=== PATIENT | male | born 1965 | race American Indian/Alaskan Native ===

== ENCOUNTER 2016-08-07 12:50 | Inpatient (IN) | payer BC ==
[2016-08-07] MEDS ORDERED: Vancomycin 1 gm/NS 200 ml 1 GM/200 ML BAG IVPB ONE (18:00)
[2016-08-07 23:10] LABS: MEAN CELL VOLUME 80.3 fL (80.0-94.0); MEAN CORPUSCULAR HEMOGLOBIN 27.5 pg (27.0-31.0); MEAN CORPUSCULAR HGB CONC 34.2 g/dL (33.0-37.0); MEAN PLATELET VOLUME 9.4 fL (7.2-11.7); RBC 5.47 Mil/uL (4.40-5.90); RED CELL DISTRIBUTION WIDTH 14.3 % (11.5-14.5); WHITE BLOOD COUNT 22.7 K/uL (4.8-10.8)
--- NOTE | 2016-08-07 23:12 | CT ---
PROCEDURE: CT NECK WITH CONTRAST HISTORY: COMPARISON: None TECHNIQUE: CT of the neck with intravenous contrast. Coronal and sagittal reformats generated. Intravenous contrast dose: 100 mL Visipaque 320 Radiation dose: DLP 511.88 mGy-cm This CT exam was performed using one or more of the following dose reduction techniques: Automated exposure control, adjustment of the mA and/or kV according to patient size, and/or use of iterative reconstruction technique. FINDINGS: NASOPHARYNX: Within normal limits. SUPRAHYOID NECK: The oropharynx, oral cavity, parapharyngeal space and retropharyngeal space are normal in appearance. INFRAHYOID NECK: The larynx, hypopharynx, and supraglottic space are normal. Vocal cords intact. MASS: None. GLANDS: Parotid and submandibular glands unremarkable. Normal size thyroid gland, without nodule. LYMPH NODES: There is a solitary enlarged left supraclavicular lymph node measuring 1.8 x 1.3 cm. CERVICAL SPINE: No fracture or focal lesion. VASCULAR STRUCTURES: Unremarkable. OTHER FINDINGS: There is diffuse stranding of subcutaneous fat in the posterior neck with abnormal subcutaneous soft tissue in the midline and to the left. There is minimal fluid subjacent to the left paraspinous muscles, irregularity and mild asymmetric enlargement of the adjacent left sternocleidomastoid. There is also diffuse skin thickening. No drainable fluid collection or abscess. IMPRESSION: 1. Findings are consistent with cellulitis and phlegmonous tissue in the subcutaneous fat in the midline and left posterior neck. No evidence of drainable fluid collection or abscess. 2. Solitary enlarged left supraclavicular lymph node is likely reactive, infectious or inflammatory in etiology.
--- NOTE | 2016-08-07 23:12 | CT ---
PROCEDURE: CT HEAD WITH CONTRAST HISTORY: COMPARISON: None available. TECHNIQUE: Axial computed tomography images were obtained through the head/brain with intravenous contrast. Contrast dose: 100 mL Visipaque 320 Radiation dose: Total exam DLP = 881.39 mGy-cm. This CT exam was performed using one or more of the following dose reduction techniques: Automated exposure control, adjustment of the mA and/or kV according to patient size, and/or use of iterative reconstruction technique. FINDINGS: HEMORRHAGE: No intracranial hemorrhage. BRAIN: Verduzco-white matter differentiation is preserved. There is no mass, mass effect or abnormal extra-axial fluid collection. VENTRICLES: The ventricles are normal in size, shape and configuration. CALVARIUM: The skull base and calvarium are normal. PARANASAL SINUSES: Predominantly clear. MASTOID AIR CELLS: Predominantly clear. OTHER FINDINGS: There is stranding of subcutaneous fat and abnormal soft tissue in the midline and left deep subcutaneous tissues. IMPRESSION: No acute intracranial abnormality. Cellulitis in the midline and left paramedian posterior neck.
[2016-08-07 23:20] LABS: ALT/SGPT 22 U/L (21-72); AST/SGOT 48 U/L (17-59); BLOOD UREA NITROGEN 17 mg/dL (9-20); CALCIUM 8.6 mg/dl (8.6-10.4); GFR AFRICAN-AMERICAN > 60; GFR NON-AFRICAN AMERICAN > 60
--- NOTE | 2016-08-08 01:24 | CP.PCM.CON ---
History of Present Illness - History of Present Illness History of Present Illness: General Sx Consult note for Violet Garcia, PGY-1 Pt S & E at bedside this evening. 51M w/PMH sig for HTN and sickle cell trait evaluated for posterior neck/ occipital area abscess evaluation s/p I & D in ED today. Pt reports that approximately 1 mo ago, he noted few small bumps on the back of his head. Went to PMD, given Abx, had emesis and dizziness after taking ABx- d/c'd use. Approximately 1 wk ago, pt noted a dime sized bump on back of his head, that enlarged to golf ball size overtime with resulting dull pain. Tried herbal remedy without resolution, used Tylenol PRN pain with relief. Admits to fevers, chills, diaphoresis, white drainage from lesion at back of head. Denies N/V, SOB, CP, abdominal pain, pain in any other part of his body besides back of his head, vision changes, other complaints. PMH: Sickle cell trait, HTN PSH: R knee arthroscopy All: Denies SH:Admits to 1-2 glasses of wine Q6mos, denies tobacco or illicit drug use PMD: Dr. Esposito on [facility] in Review of Systems - Review of Systems All systems: reviewed and no additional remarkable complaints except - Constitutional Constitutional: Chills, Fever - EENT Eyes: absent: Change in Vision Nose/Mouth/Throat: Neck Pain - Cardiovascular Cardiovascular: absent: Chest Pain - Respiratory Respiratory: absent: Cough - Gastrointestinal Gastrointestinal: absent: Abdominal Pain, Nausea, Vomiting - Musculoskeletal Musculoskeletal: Neck Pain. absent: Back Pain - Integumentary Integumentary: Lesions (posterior neck/occipital area) Past Patient History - Past Medical History & Family History Past Medical History?: No - Past Social History Smoking Status: Never Smoked - MUSCULOSKELETAL/RHEUMATOLOGICAL Hx Falls: No - SURGICAL HISTORY Hx Surgeries: Yes Other/Comment: knee surgery 2004 - ANESTHESIA Hx Anesthesia: Yes Hx Anesthesia Reactions: No Meds Allergies/Adverse Reactions: Allergies Allergy/AdvReac Type Severity Reaction Status Date / Time No Known Allergies Allergy Verified 08/07/16 23:06 - Medications Medications: Current Medications Acetaminophen (Tylenol 325mg Tab) 650 mg PO Q4 PRN PRN Reason: Fever >101.0F Enoxaparin Sodium (Lovenox) 40 mg SC DAILY [facility] Vancomycin HCl 1 gm/ Sodium (Chloride) 250 mls @ 166.7 mls/hr IVPB Q12H [facility] Pneumococcal Polyvalent Vaccine (Pneumovax 23 Vaccine) 0.5 ml IM .ONCE ONE Stop: 08/10/16 10:01 Physical Exam - Constitutional Appears: Non-toxic, No Acute Distress - Head Exam Additional comments: Large, indurated area over occipital area of cranium, approximately 12 x 6 cm with longitudinal incision visible over central area, covered by large dressing , small amount of purulent strike through on dressing, TTP over lesion and surrounding area of B/L lateral neck, no erythema visible - Eye Exam Eye Exam: EOMI, Normal appearance - ENT Exam ENT Exam: Mucous Membranes Moist, Normal Exam - Neck Exam Neck exam: Positive for: Full Rom, Tenderness (over occipital area/posterior neck). Negative for: Normal Inspection - Respiratory Exam Respiratory Exam: Clear to Auscultation Bilateral, NORMAL BREATHING PATTERN. absent: Rales, Rhonchi, Wheezes, Respiratory Distress - Cardiovascular Exam Cardiovascular Exam: REGULAR RHYTHM, +S1, +S2 - GI/Abdominal Exam GI & Abdominal Exam: Normal Bowel Sounds, Soft. absent: Tenderness - Extremities Exam Extremities exam: Positive for: full ROM, normal inspection. Negative for: pedal edema - Neurological Exam Neurological exam: Alert, CN II-XII Intact, Oriented x3 - Psychiatric Exam Psychiatric exam: Normal Affect, Normal Mood - Skin Skin Exam: Dry, Normal Color, Warm Additional comments: see neck for skin findings Results - Vital Signs Recent Vital Signs: Last Vital Signs Temp 98.2 F 08/07/16 23:49 Pulse 82 08/07/16 23:49 Resp 20 08/07/16 23:49 BP 145/84 08/07/16 23:49 Pulse Ox 95 08/07/16 23:49 - Labs Result Diagrams: 08/07/16 23:03 08/07/16 23:03 Labs: Laboratory Results - last 24 hr 08/07/16 08/07/16 23:03 23:03 WBC 22.7 H RBC 5.47 Hgb 15.0 Hct 43.9 MCV 80.3 MCH 27.5 MCHC 34.2 RDW 14.3 Plt Count 217 MPV 9.4 Sodium 140 Potassium 5.0 Chloride 101 Carbon Dioxide 29 Anion Gap 15 BUN 17 Creatinine 1.1 Est GFR ( Amer) > 60 Est GFR (Non-Af Amer) > 60 Random Glucose 98 Calcium 8.6 Total Bilirubin 1.4 H AST 48 ALT 22 Alkaline Phosphatase 58 Total Protein 8.2 Albumin 4.0 Globulin 4.2 H Albumin/Globulin Ratio 1.0 Assessment & Plan - Assessment and Plan (Free Text) Plan: Posterior neck/occipital area abscess s/p I & D in ED earlier today warm compresses to back of head Cont IV Abx Pain mgmt as per primary team Will monitor DW attending Tammi PGY-1 - Date & Time Date: 08/07/16 Time: 20:30
--- NOTE | 2016-08-08 06:28 | CP.PCM.PN ---
Subjective - Date & Time of Evaluation Date of Evaluation: 08/08/16 Time of Evaluation: 06:10 - Subjective Subjective: General Sx progress note for Dr. Jaylan Cadena, PGY-1 Pt S & E at bedside. Pt reports tenderness upon pressure over posterior neck, unable to lay on back due to pain. Denies N/V/F/C, SOB, CP, ab pain overnight. Objective - Vital Signs/Intake and Output Vital Signs (last 24 hours): Temp Pulse Resp BP Pulse Ox 99.1 F 82 20 145/84 95 08/08/16 05:50 08/07/16 23:49 08/07/16 23:49 08/07/16 23:49 08/07/16 23:49 Intake and Output: 08/07/16 08/08/16 18:59 06:59 Intake Total 650 Output Total 200 Balance 450 - Medications Medications: Current Medications Acetaminophen (Tylenol 325mg Tab) 650 mg PO Q4 PRN PRN Reason: Fever >101.0F Last Admin: 08/08/16 06:10 Dose: 650 mg Enoxaparin Sodium (Lovenox) 40 mg SC DAILY [facility] Famotidine (Pepcid) 20 mg PO DAILY [facility] Vancomycin HCl 1 gm/ Sodium (Chloride) 250 mls @ 166.7 mls/hr IVPB Q12H [facility] Last Admin: 08/08/16 05:18 Dose: 166.7 mls/hr Pneumococcal Polyvalent Vaccine (Pneumovax 23 Vaccine) 0.5 ml IM .ONCE ONE Stop: 08/10/16 10:01 - Labs Labs: 08/07/16 23:03 08/07/16 23:03 - Constitutional Appears: Non-toxic, No Acute Distress - Head Exam Additional comments: Large, indurated area over occipital area of cranium, approximately 12 x 6 cm with longitudinal incision visible over central area, covered by large dressing , moderate amount of purulent strike through on dressing, TTP over lesion and surrounding area of B/L lateral neck, no erythema visible, able to express small amount of purulent drainage upon palpation - Eye Exam Eye Exam: EOMI, Normal appearance - ENT Exam ENT Exam: Mucous Membranes Moist, Normal Exam - Neck Exam Neck Exam: Tenderness - Respiratory Exam Respiratory Exam: Clear to Ausculation Bilateral, NORMAL BREATHING PATTERN - Cardiovascular Exam Cardiovascular Exam: REGULAR RHYTHM, +S1, +S2 - GI/Abdominal Exam GI & Abdominal Exam: Soft, Normal Bowel Sounds - Extremities Exam Extremities Exam: absent: Pedal Edema, Tenderness - Neurological Exam Neurological Exam: Alert, Awake, Oriented x3 - Psychiatric Exam Psychiatric exam: Normal Affect, Normal Mood - Skin Skin Exam: Dry, Warm. absent: Intact - Additional Findings Additional findings: See head for neck skin findings Assessment and Plan - Assessment and Plan (Free Text) Assessment: Posterior neck abscess s/p I & D Cont warm compresses to area Cont IV ABx Motrin Tylenol Monitor Will DW attending Cadena PGY-1
[2016-08-08] MEDS: Enoxaparin 40 mg Syringe SC SCH (09:26)
--- NOTE | 2016-08-08 23:34 | CP.PCM.HP ---
History of Present Illness - History of Present Illness History of Present Illness: CC: abscess on neck HPI: This is a 51 yr old AA male who has history of HTN, sickle cell disaese, obesity not diabetic, no cardiac histiry, independent in activities of daily living, for last 1 month he had swelling at back of his neck, gradually getting worse, painful,associated with fever, chills and rigors, his PMd gave him antibiotics by which he didinot improved and he came to ER, he is admitted . there is a lot of neck pain, significant swelling and purulent discharge from the abscess. He denies any cough, chest pain, shortness of breath, Present on Admission - Present on Admission Any Indicators Present on Admission: Yes History of DVT/PE: No History of Uncontrolled Diabetes: No Urinary Catheter: No Decubitus Ulcer Present: No Review of Systems - Review of Systems Systems not reviewed;Unavailable: Acuity of Condition - Constitutional Constitutional: Chills, Fever, Malaise - EENT Eyes: absent: As Per HPI, Blind Spots, Blurred Vision, Change in Vision, Decreased Night Vision, Diplopia, Discharge, Dry Eye, Exophthalmos, Floaters, Irritation, Itchy Eyes, Loss of Peripheral Vision, Pain, Photophobia, Requires Corrective Lenses, Sees Flashes, Spots in Vision, Tunnel Vision, Other Visual Disturbances, Loss of Vision, Other Nose/Mouth/Throat: absent: As Per HPI, Epistaxis, Nasal Congestion, Nasal Discharge, Nasal Obstruction, Nasal Trauma, Nose Pain, Post Nasal Drip, Sinus Pain, Sinus Pressure, Bleeding Gums, Change in Voice, Dental Pain, Dry Mouth, Dysphagia, Halitosis, Hoarsness, Lip Swelling, Mouth Lesions, Mouth Pain, Odynophagia, Sore Throat, Throat Swelling, Tongue Swelling, Facial Pain, Neck Pain, Neck Mass, Other - Cardiovascular Cardiovascular: absent: As Per HPI, Acrocyanosis, Chest Pain, Chest Pain at Rest , Chest Pain with Activity, Claudication, Diaphoresis, Dyspnea, Dyspnea on Exertion, Edema, Irregular Heart Rhythm, Pain Radiating to Arm/Neck/Jaw, Leg Edema, Leg Ulcers, Lightheadedness, Orthopnea, Palpitations, Paroxysmal Nocturnal Dyspnea, Pedal Edema, Radiating Pain, Rapid Heart Rate, Slow Heart Rate, Syncope, Other - Respiratory Respiratory: absent: As Per HPI, Cough, Dyspnea, Hemoptysis, Dyspnea on Exertion , Wheezing, Snoring, Stridor, Pain on Inspiration, Chest Congestion, Excessive Mucous Production, Change in Mucous Color, Pain with Coughing, Other - Integumentary Integumentary: Swelling Past Patient History - Past Medical History & Family History Past Medical History?: No - Past Social History Smoking Status: Never Smoked - MUSCULOSKELETAL/RHEUMATOLOGICAL Hx Falls: No - SURGICAL HISTORY Hx Surgeries: Yes Other/Comment: knee surgery 2005 - ANESTHESIA Hx Anesthesia: Yes Hx Anesthesia Reactions: No Meds Allergies/Adverse Reactions: Allergies Allergy/AdvReac Type Severity Reaction Status Date / Time No Known Allergies Allergy Verified 08/07/16 23:06 Physical Exam - Constitutional Appears: No Acute Distress - Head Exam Head Exam: ATRAUMATIC, NORMOCEPHALIC Additional comments: Large, indurated area over occipital area of cranium, approximately 12 x 6 cm with longitudinal incision visible over central area, covered by large dressing , small amount of purulent strike through on dressing, TTP over lesion and surrounding area of B/L lateral neck, no erythema visible - Eye Exam Eye Exam: EOMI, Normal appearance, PERRL Pupil Exam: NORMAL ACCOMODATION, PERRL - ENT Exam ENT Exam: Mucous Membranes Moist - Neck Exam Neck exam: Positive for: Tenderness Additional comments: Large, indurated area over occipital area of cranium, approximately 12 x 6 cm with longitudinal incision visible over central area, covered by large dressing , small amount of purulent strike through on dressing, TTP over lesion and surrounding area of B/L lateral neck, no erythema visible - Respiratory Exam Respiratory Exam: Clear to Auscultation Bilateral, NORMAL BREATHING PATTERN - Cardiovascular Exam Cardiovascular Exam: REGULAR RHYTHM - GI/Abdominal Exam GI & Abdominal Exam: Normal Bowel Sounds, Soft. absent: Tenderness Results - Vital Signs Recent Vital Signs: Last Vital Signs Temp 98 F 08/08/16 16:00 Pulse 76 08/08/16 16:00 Resp 20 08/08/16 16:00 BP 138/88 08/08/16 16:00 Pulse Ox 98 08/08/16 16:00 - Labs Result Diagrams: 08/10/16 09:07 08/10/16 09:07 Assessment & Plan (1) Abscess of neck Assessment and Plan: admit I and D antibitics Pain managment Status: Acute
--- NOTE | 2016-08-09 07:26 | CP.PCM.PN ---
Subjective - Date & Time of Evaluation Date of Evaluation: 08/09/16 Time of Evaluation: 06:40 - Subjective Subjective: Patient seen and examined this morning. Reports some tenderness along occipital region. Abscess is actively draining, some pus was expressed this AM. Patient denies fever/chills. Dressings were changed, c/d/i. Objective - Vital Signs/Intake and Output Vital Signs (last 24 hours): Temp Pulse Resp BP Pulse Ox 98.4 F 80 20 148/88 97 08/09/16 00:00 08/09/16 00:00 08/09/16 00:00 08/09/16 00:00 08/09/16 00:00 Intake and Output: 08/09/16 08/09/16 06:59 18:59 Intake Total 1140 Balance 1140 - Medications Medications: Current Medications Acetaminophen (Tylenol 325mg Tab) 650 mg PO Q4 PRN PRN Reason: Fever >101.0F Last Admin: 08/08/16 06:10 Dose: 650 mg Acetaminophen (Tylenol 325mg Tab) 650 mg PO Q6 PRN PRN Reason: Pain, moderate (4-7) Enoxaparin Sodium (Lovenox) 40 mg SC DAILY [facility] Last Admin: 08/08/16 09:26 Dose: Not Given Famotidine (Pepcid) 20 mg PO DAILY [facility] Last Admin: 08/08/16 09:25 Dose: 20 mg Vancomycin HCl 1 gm/ Sodium (Chloride) 250 mls @ 166.7 mls/hr IVPB Q12H [facility] Last Admin: 08/09/16 05:34 Dose: 166.7 mls/hr Ibuprofen (Motrin Tab) 600 mg PO TID PRN PRN Reason: Pain, Mild (1-3) Last Admin: 08/08/16 22:46 Dose: 600 mg Pneumococcal Polyvalent Vaccine (Pneumovax 23 Vaccine) 0.5 ml IM .ONCE ONE Stop: 08/10/16 10:01 - Constitutional Appears: Non-toxic - Head Exam Additional comments: posterior abscess along occipital region, actively draining - ENT Exam ENT Exam: Mucous Membranes Moist - Respiratory Exam Respiratory Exam: NORMAL BREATHING PATTERN - Cardiovascular Exam Cardiovascular Exam: +S1, +S2 - Neurological Exam Neurological Exam: Alert, Awake, Oriented x3 - Psychiatric Exam Psychiatric exam: Normal Mood Assessment and Plan - Assessment and Plan (Free Text) Assessment: 51M w/ posterior neck abscess s/p I & D Cont warm compresses to area Cont IV ABx C/w analgesics Dressing changes, maintain area clean/dry/intact Further recs per Dr. Miller
[2016-08-09] MEDS: Enoxaparin 40 mg Syringe SC SCH (09:56)
[2016-08-09 12:03] LABS: BASO # 0.1 K/uL (0.0-0.2); BASO % 0.6 % (0.0-2.0); EOS # 0.4 K/uL (0.0-0.7); EOS % 2.7 % (0.0-4.0); HEMOGLOBIN 14.1 g/dL (12.0-18.0); LYMPH # 3.3 K/uL (1.0-4.3); LYMPH % 20.5 % (20.0-40.0); MEAN CELL VOLUME 79.4 fL (80.0-94.0); MEAN CORPUSCULAR HEMOGLOBIN 27.2 pg (27.0-31.0); MEAN CORPUSCULAR HGB CONC 34.3 g/dL (33.0-37.0); MEAN PLATELET VOLUME 9.1 fL (7.2-11.7); MONO # 1.6 K/uL (0.0-0.8); MONO % 9.8 % (0.0-10.0); NEUT # 10.6 K/uL (1.8-7.0); NEUT % 66.4 % (50.0-75.0); RBC 5.18 Mil/uL (4.40-5.90); RED CELL DISTRIBUTION WIDTH 14.2 % (11.5-14.5)
[2016-08-09 12:14] LABS: GFR AFRICAN-AMERICAN > 60; GFR NON-AFRICAN AMERICAN > 60
[2016-08-09 12:15] LABS: BLOOD UREA NITROGEN 14 mg/dL (9-20); CALCIUM 8.6 mg/dl (8.6-10.4)
[2016-08-09] MEDS ORDERED: Potassium Chloride 20 mEq/15 ml LIQ UD PO STA (18:29)
--- NOTE | 2016-08-09 23:41 | CP.PCM.PN ---
Subjective - Date & Time of Evaluation Date of Evaluation: 08/09/16 Time of Evaluation: 09:00 - Subjective Subjective: C/O NECK PAIN, FEVER CHILLS, NO SOB, NO DM Objective - Vital Signs/Intake and Output Vital Signs (last 24 hours): Temp Pulse Resp BP Pulse Ox 98.2 F 77 20 147/90 96 08/09/16 16:00 08/09/16 16:00 08/09/16 16:00 08/09/16 16:00 08/09/16 16:00 Intake and Output: 08/09/16 08/10/16 18:59 06:59 Intake Total 600 Balance 600 - Medications Medications: Current Medications Acetaminophen (Tylenol 325mg Tab) 650 mg PO Q4 PRN PRN Reason: Fever >101.0F Last Admin: 08/08/16 06:10 Dose: 650 mg Acetaminophen (Tylenol 325mg Tab) 650 mg PO Q6 PRN PRN Reason: Pain, moderate (4-7) Enoxaparin Sodium (Lovenox) 40 mg SC DAILY [facility] Last Admin: 08/09/16 09:56 Dose: 40 mg Famotidine (Pepcid) 20 mg PO DAILY [facility] Last Admin: 08/09/16 09:56 Dose: 20 mg Vancomycin HCl 1 gm/ Sodium (Chloride) 250 mls @ 166.7 mls/hr IVPB Q12H [facility] Last Admin: 08/09/16 17:26 Dose: 166.7 mls/hr Ibuprofen (Motrin Tab) 600 mg PO TID PRN PRN Reason: Pain, Mild (1-3) Last Admin: 08/08/16 22:46 Dose: 600 mg Pneumococcal Polyvalent Vaccine (Pneumovax 23 Vaccine) 0.5 ml IM .ONCE ONE Stop: 08/10/16 10:01 - Labs Labs: 08/09/16 11:53 08/09/16 11:53 - Constitutional Appears: Non-toxic, No Acute Distress - Head Exam Head Exam: ATRAUMATIC, NORMAL INSPECTION, NORMOCEPHALIC - Eye Exam Eye Exam: EOMI, Normal appearance, PERRL Pupil Exam: NORMAL ACCOMODATION - ENT Exam ENT Exam: Mucous Membranes Moist, Normal Exam, TM's Normal Bilaterally - Neck Exam Neck Exam: Full ROM (ABCESS BACK OF NECK WITH DISCHARGE), Normal Inspection - Respiratory Exam Respiratory Exam: NORMAL BREATHING PATTERN - Cardiovascular Exam Cardiovascular Exam: REGULAR RHYTHM, +S1, +S2 - GI/Abdominal Exam GI & Abdominal Exam: Soft, Normal Bowel Sounds - Rectal Exam Rectal Exam: NORMAL INSPECTION - Extremities Exam Extremities Exam: Full ROM, Normal Capillary Refill, Normal Inspection - Back Exam Back Exam: NORMAL INSPECTION - Neurological Exam Neurological Exam: Alert, Awake, CN II-XII Intact, Normal Gait, Oriented x3 Assessment and Plan (1) Abscess of neck Assessment & Plan: CONTINUE VANCOMYCIN, SEEN BY SURGERY Status: Acute
--- NOTE | 2016-08-10 08:49 | CP.PCM.PN ---
Subjective - Date & Time of Evaluation Date of Evaluation: 08/10/16 Time of Evaluation: 08:45 - Subjective Subjective: Surgery: Dr. Miller Patient doing well. States posterior neck feels better. Reports good range of motion. Denies f/c/n/v. States he is still doing warm compresses and the abscess continues to drain. Objective - Vital Signs/Intake and Output Vital Signs (last 24 hours): Temp Pulse Resp BP Pulse Ox 98 F 72 20 134/85 96 08/10/16 00:25 08/10/16 00:25 08/10/16 00:25 08/10/16 00:25 08/10/16 00:25 Intake and Output: 08/10/16 08/10/16 06:59 18:59 Intake Total 600 Balance 600 - Medications Medications: Current Medications Acetaminophen (Tylenol 325mg Tab) 650 mg PO Q4 PRN PRN Reason: Fever >101.0F Last Admin: 08/08/16 06:10 Dose: 650 mg Acetaminophen (Tylenol 325mg Tab) 650 mg PO Q6 PRN PRN Reason: Pain, moderate (4-7) Enoxaparin Sodium (Lovenox) 40 mg SC DAILY [facility] Last Admin: 08/09/16 09:56 Dose: 40 mg Famotidine (Pepcid) 20 mg PO DAILY [facility] Last Admin: 08/09/16 09:56 Dose: 20 mg Vancomycin HCl 1 gm/ Sodium (Chloride) 250 mls @ 166.7 mls/hr IVPB Q12H [facility] Last Admin: 08/10/16 05:25 Dose: 166.7 mls/hr Ibuprofen (Motrin Tab) 600 mg PO TID PRN PRN Reason: Pain, Mild (1-3) Last Admin: 08/08/16 22:46 Dose: 600 mg Pneumococcal Polyvalent Vaccine (Pneumovax 23 Vaccine) 0.5 ml IM .ONCE ONE Stop: 08/10/16 10:01 - Labs Labs: 08/09/16 11:53 08/09/16 11:53 - Constitutional Appears: Non-toxic, No Acute Distress - Head Exam Head Exam: ATRAUMATIC, NORMOCEPHALIC - Eye Exam Eye Exam: EOMI, Normal appearance - ENT Exam ENT Exam: Mucous Membranes Moist - Neck Exam Additional comments: posterior neck w/ 4x5cm induration surrounding small linear incision over abscess cavity. Serous fluid actively draining from cavity. nontender. Overall size decreased from yesterday. Assessment and Plan - Assessment and Plan (Free Text) Assessment: 51 y/o male w/ posterior neck abscess s/p I&D in ER Plan: -still actively draining and smaller -cont warm compress -dressing changes prn -encourage OOB and neck movement -cont abx -f/u final culture -abscess could be 2/2 infected sebaceous cyst, will need surgical f/u as outpatient -d/w patient chances of recurrence -d/w Dr. Angela Harvey PGY3
[2016-08-10 09:15] LABS: BASO # 0.1 K/uL (0.0-0.2); BASO % 0.7 % (0.0-2.0); EOS # 0.5 K/uL (0.0-0.7); HEMOGLOBIN 15.3 g/dL (12.0-18.0); LYMPH % 24.4 % (20.0-40.0); MEAN CELL VOLUME 79.9 fL (80.0-94.0); MEAN CORPUSCULAR HEMOGLOBIN 27.8 pg (27.0-31.0); MEAN CORPUSCULAR HGB CONC 34.8 g/dL (33.0-37.0); MONO # 0.7 K/uL (0.0-0.8); MONO % 5.5 % (0.0-10.0); NEUT # 8.1 K/uL (1.8-7.0); NEUT % 65.4 % (50.0-75.0); NRBC % 0.1 % (0.0-2.0); RBC 5.5 Mil/uL (4.40-5.90); WHITE BLOOD COUNT 12.3 K/uL (4.8-10.8)
[2016-08-10] MEDS: Enoxaparin 40 mg Syringe SC SCH ×2 (09:46→09:49)
[2016-08-10 09:47] LABS: BLOOD UREA NITROGEN 13 mg/dL (9-20); GFR AFRICAN-AMERICAN > 60; GFR NON-AFRICAN AMERICAN > 60
[2016-08-10] MEDS ORDERED: Pneumococcal 23-Valent Vaccine IM ONE (10:00)
[2016-08-10] MEDS: Potassium Chloride 20 mEq ER Tab PO SCH (13:18)
--- NOTE | 2016-08-10 21:48 | CP.PCM.PN ---
Subjective - Date & Time of Evaluation Date of Evaluation: 08/10/16 Time of Evaluation: 20:00 - Subjective Subjective: Patient seen and examined , has decresaed wbc, no fever, on contact isolation, wound culture positive for MRSA Objective - Vital Signs/Intake and Output Vital Signs (last 24 hours): Temp Pulse Resp BP Pulse Ox 97.8 F 84 20 158/108 H 96 08/10/16 19:29 08/10/16 19:29 08/10/16 19:29 08/10/16 19:29 08/10/16 19:29 Intake and Output: 08/10/16 08/11/16 18:59 06:59 Intake Total 400 Balance 400 - Medications Medications: Current Medications Acetaminophen (Tylenol 325mg Tab) 650 mg PO Q4 PRN PRN Reason: Fever >101.0F Last Admin: 08/10/16 17:57 Dose: 650 mg Acetaminophen (Tylenol 325mg Tab) 650 mg PO Q6 PRN PRN Reason: Pain, moderate (4-7) Enoxaparin Sodium (Lovenox) 40 mg SC DAILY [facility] Last Admin: 08/10/16 09:49 Dose: Not Given Famotidine (Pepcid) 20 mg PO DAILY [facility] Last Admin: 08/10/16 09:46 Dose: 20 mg Vancomycin HCl 1 gm/ Sodium (Chloride) 250 mls @ 166.7 mls/hr IVPB Q12H [facility] Last Admin: 08/10/16 18:32 Dose: 166.7 mls/hr Ibuprofen (Motrin Tab) 600 mg PO TID PRN PRN Reason: Pain, Mild (1-3) Last Admin: 08/08/16 22:46 Dose: 600 mg Potassium Chloride (K-Dur 20 Meq Er Tab) 20 meq PO DAILY [facility] Last Admin: 08/10/16 13:18 Dose: 20 meq - Labs Labs: 08/10/16 09:07 08/10/16 09:07 - Constitutional Appears: No Acute Distress - Eye Exam Eye Exam: EOMI, Normal appearance, PERRL Pupil Exam: NORMAL ACCOMODATION, PERRL - Neck Exam Neck Exam: Tenderness Additional comments: tenderness along occipital region. Abscess is actively draining, some pus was expressed this AM. Patient denies fever/chills. Dressings were changed, c/d/i. - Respiratory Exam Respiratory Exam: Clear to Ausculation Bilateral, NORMAL BREATHING PATTERN - Cardiovascular Exam Cardiovascular Exam: REGULAR RHYTHM, +S1, +S2. absent: Murmur - GI/Abdominal Exam GI & Abdominal Exam: Soft, Normal Bowel Sounds. absent: Tenderness - Rectal Exam Rectal Exam: Deferred Assessment and Plan (1) Abscess of neck Assessment & Plan: continue vancomycin Status: Acute
[2016-08-11 08:20] LABS: BASO # 0.1 K/uL (0.0-0.2); BASO % 0.7 % (0.0-2.0); EOS # 0.5 K/uL (0.0-0.7); EOS % 4.2 % (0.0-4.0); LYMPH # 3.4 K/uL (1.0-4.3); LYMPH % 28.4 % (20.0-40.0); MEAN CELL VOLUME 79.9 fL (80.0-94.0); MEAN CORPUSCULAR HEMOGLOBIN 27.7 pg (27.0-31.0); MEAN CORPUSCULAR HGB CONC 34.7 g/dL (33.0-37.0); MEAN PLATELET VOLUME 8.6 fL (7.2-11.7); MONO % 8.4 % (0.0-10.0); NEUT % 58.3 % (50.0-75.0); RBC 5.4 Mil/uL (4.40-5.90); RED CELL DISTRIBUTION WIDTH 14.2 % (11.5-14.5)
--- NOTE | 2016-08-11 08:25 | CP.PCM.PN ---
Subjective - Date & Time of Evaluation Date of Evaluation: 08/11/16 Time of Evaluation: 06:40 Objective - Vital Signs/Intake and Output Vital Signs (last 24 hours): Temp Pulse Resp BP Pulse Ox 98.0 F 72 20 158/92 H 98 08/11/16 08:21 08/11/16 08:21 08/11/16 08:21 08/11/16 08:21 08/11/16 08:21 - Medications Medications: Current Medications Acetaminophen (Tylenol 325mg Tab) 650 mg PO Q4 PRN PRN Reason: Fever >101.0F Last Admin: 08/10/16 17:57 Dose: 650 mg Acetaminophen (Tylenol 325mg Tab) 650 mg PO Q6 PRN PRN Reason: Pain, moderate (4-7) Enoxaparin Sodium (Lovenox) 40 mg SC DAILY [facility] Last Admin: 08/10/16 09:49 Dose: Not Given Famotidine (Pepcid) 20 mg PO DAILY [facility] Last Admin: 08/10/16 09:46 Dose: 20 mg Vancomycin HCl 1 gm/ Sodium (Chloride) 250 mls @ 166.7 mls/hr IVPB Q12H [facility] Last Admin: 08/11/16 05:07 Dose: 166.7 mls/hr Ibuprofen (Motrin Tab) 600 mg PO TID PRN PRN Reason: Pain, Mild (1-3) Last Admin: 08/08/16 22:46 Dose: 600 mg Potassium Chloride (K-Dur 20 Meq Er Tab) 20 meq PO DAILY [facility] Last Admin: 08/10/16 13:18 Dose: 20 meq - Labs Labs: 08/11/16 08:00 08/10/16 09:07
[2016-08-11 08:34] LABS: GFR AFRICAN-AMERICAN > 60; GFR NON-AFRICAN AMERICAN > 60
[2016-08-11 08:35] LABS: BLOOD UREA NITROGEN 14 mg/dL (9-20); CALCIUM 8.9 mg/dl (8.6-10.4)
--- NOTE | 2016-08-11 10:57 | CP.PCM.PN ---
Subjective - Date & Time of Evaluation Date of Evaluation: 08/11/16 Time of Evaluation: 10:54 - Subjective Subjective: Abscess seems to be reaccuulating. CHIQUITA IS SWOLLEN AND FLUCTUANT. WILL NEED DRANAGE AND PACKING BEFORE DC WITH ABX Objective - Vital Signs/Intake and Output Vital Signs (last 24 hours): Temp Pulse Resp BP Pulse Ox 98.0 F 72 20 158/92 H 98 08/11/16 08:21 08/11/16 08:21 08/11/16 08:21 08/11/16 08:21 08/11/16 08:21 - Medications Medications: Current Medications Acetaminophen (Tylenol 325mg Tab) 650 mg PO Q4 PRN PRN Reason: Fever >101.0F Last Admin: 08/10/16 17:57 Dose: 650 mg Acetaminophen (Tylenol 325mg Tab) 650 mg PO Q6 PRN PRN Reason: Pain, moderate (4-7) Enoxaparin Sodium (Lovenox) 40 mg SC DAILY [facility] Last Admin: 08/10/16 09:49 Dose: Not Given Famotidine (Pepcid) 20 mg PO DAILY [facility] Last Admin: 08/10/16 09:46 Dose: 20 mg Vancomycin HCl 1 gm/ Dextrose 250 mls @ 166.7 mls/hr IVPB Q12H [facility] Ibuprofen (Motrin Tab) 600 mg PO TID PRN PRN Reason: Pain, Mild (1-3) Last Admin: 08/08/16 22:46 Dose: 600 mg Potassium Chloride (K-Dur 20 Meq Er Tab) 20 meq PO DAILY [facility] Last Admin: 08/10/16 13:18 Dose: 20 meq - Labs Labs: 08/11/16 08:00 08/11/16 08:00
[2016-08-11] MEDS: Potassium Chloride 20 mEq ER Tab PO SCH (11:04)
[2016-08-11] MEDS: Enoxaparin 40 mg Syringe SC SCH (11:04)
--- NOTE | 2016-08-11 18:01 | CP.PCM.PN ---
Subjective - Date & Time of Evaluation Date of Evaluation: 08/11/16 Time of Evaluation: 16:45 - Subjective Subjective: General sx progress note for Dr. Haven Cadena, PGY-1 Pt S & E at bedside. Pt reports continued tenderness over posterior aspect of neck- improving. Denies N/V/F/C, SOB, CP, ab pain. Objective - Vital Signs/Intake and Output Vital Signs (last 24 hours): Temp Pulse Resp BP Pulse Ox 97.8 F 78 20 174/106 H 97 08/11/16 15:00 08/11/16 15:00 08/11/16 15:00 08/11/16 15:00 08/11/16 15:00 - Medications Medications: Current Medications Acetaminophen (Tylenol 325mg Tab) 650 mg PO Q4 PRN PRN Reason: Fever >101.0F Last Admin: 08/10/16 17:57 Dose: 650 mg Acetaminophen (Tylenol 325mg Tab) 650 mg PO Q6 PRN PRN Reason: Pain, moderate (4-7) Enoxaparin Sodium (Lovenox) 40 mg SC DAILY [facility] Last Admin: 08/11/16 11:04 Dose: Not Given Famotidine (Pepcid) 20 mg PO DAILY [facility] Last Admin: 08/11/16 11:04 Dose: 20 mg Vancomycin HCl 1 gm/ Dextrose 250 mls @ 166.7 mls/hr IVPB Q12H [facility] Ibuprofen (Motrin Tab) 600 mg PO TID PRN PRN Reason: Pain, Mild (1-3) Last Admin: 08/08/16 22:46 Dose: 600 mg Potassium Chloride (K-Dur 20 Meq Er Tab) 20 meq PO DAILY [facility] Last Admin: 08/11/16 11:04 Dose: 20 meq - Labs Labs: 08/11/16 08:00 08/11/16 08:00 - Constitutional Appears: Non-toxic, No Acute Distress - Head Exam Head Exam: ATRAUMATIC, NORMAL INSPECTION, NORMOCEPHALIC - Eye Exam Eye Exam: EOMI, Normal appearance - ENT Exam ENT Exam: Mucous Membranes Moist, Normal Exam - Neck Exam Neck Exam: Full ROM, Tenderness (over posterior aspect of neck/abscess site). absent: Normal Inspection (abscess, approximately 8 x 4 cm large, with induration at margins and fluctuance in central aspect; no drainage expressable) - Respiratory Exam Respiratory Exam: Clear to Ausculation Bilateral, NORMAL BREATHING PATTERN. absent: Chest Wall Tenderness - Cardiovascular Exam Cardiovascular Exam: REGULAR RHYTHM, +S1, +S2 - GI/Abdominal Exam GI & Abdominal Exam: Soft, Normal Bowel Sounds. absent: Tenderness - Extremities Exam Extremities Exam: Normal Inspection - Back Exam Back Exam: NORMAL INSPECTION - Neurological Exam Neurological Exam: Alert, Awake, CN II-XII Intact, Oriented x3 - Psychiatric Exam Psychiatric exam: Normal Affect, Normal Mood - Skin Skin Exam: Dry, Normal Color, Warm. absent: Intact (see neck exam for skin findings) Assessment and Plan - Assessment and Plan (Free Text) Assessment: 51M w/posterior neck abscess- improving; but needs more intervention Plan: -Cont ABx/pain mgmt -For OR tomorrow for I & D of posterior neck abscess -consent in chart -NPO at [facility] held DW attending Tammi PGY-1
[2016-08-11] MEDS: Vancomycin 1 GM in Dextrose 5% In Water 250 ML IVPB SCH (19:20)
--- NOTE | 2016-08-11 22:39 | CP.PCM.PN ---
Subjective - Date & Time of Evaluation Date of Evaluation: 08/11/16 Time of Evaluation: 19:00 - Subjective Subjective: Pt seen and examined at bedside, Pt reports continued tenderness over posterior aspect of neck- improving. Denies N/V/F/C, SOB, CP, ab pain. Objective - Vital Signs/Intake and Output Vital Signs (last 24 hours): Temp Pulse Resp BP Pulse Ox 97.8 F 78 20 174/106 H 97 08/11/16 15:00 08/11/16 15:00 08/11/16 15:00 08/11/16 15:00 08/11/16 15:00 - Medications Medications: Current Medications Acetaminophen (Tylenol 325mg Tab) 650 mg PO Q4 PRN PRN Reason: Fever >101.0F Last Admin: 08/10/16 17:57 Dose: 650 mg Acetaminophen (Tylenol 325mg Tab) 650 mg PO Q6 PRN PRN Reason: Pain, moderate (4-7) Enoxaparin Sodium (Lovenox) 40 mg SC DAILY [facility] Last Admin: 08/11/16 11:04 Dose: Not Given Famotidine (Pepcid) 20 mg PO DAILY [facility] Last Admin: 08/11/16 11:04 Dose: 20 mg Vancomycin HCl 1 gm/ Dextrose 250 mls @ 166.7 mls/hr IVPB Q12H [facility] Last Admin: 08/11/16 19:20 Dose: Not Given Ibuprofen (Motrin Tab) 600 mg PO TID PRN PRN Reason: Pain, Mild (1-3) Last Admin: 08/08/16 22:46 Dose: 600 mg Potassium Chloride (K-Dur 20 Meq Er Tab) 20 meq PO DAILY [facility] Last Admin: 08/11/16 11:04 Dose: 20 meq - Labs Labs: 08/11/16 08:00 08/11/16 08:00 - Constitutional Appears: No Acute Distress - Head Exam Head Exam: ATRAUMATIC, NORMAL INSPECTION, NORMOCEPHALIC - Eye Exam Eye Exam: EOMI, Normal appearance, PERRL Pupil Exam: NORMAL ACCOMODATION, PERRL - Respiratory Exam Respiratory Exam: Clear to Ausculation Bilateral, NORMAL BREATHING PATTERN - Cardiovascular Exam Cardiovascular Exam: REGULAR RHYTHM, +S1, +S2. absent: Murmur - GI/Abdominal Exam GI & Abdominal Exam: Soft, Normal Bowel Sounds. absent: Tenderness Assessment and Plan (1) Abscess of neck Status: Acute
[2016-08-12] MEDS: Vancomycin 1 GM in Dextrose 5% In Water 250 ML IVPB SCH (05:53)
[2016-08-12] MEDS: Potassium Chloride 20 mEq ER Tab PO SCH (10:01)
[2016-08-12] MEDS ORDERED: Lactated Ringer's 1,000 ML IV ONE ×2 (10:23)
[2016-08-12] MEDS ORDERED: Bupivacaine-Epi 0.25%-1:200,000 PF Inj ONE (10:54)
[2016-08-12 11:08] LABS: BASO # 0.1 K/uL (0.0-0.2); BASO % 0.7 % (0.0-2.0); EOS # 0.5 K/uL (0.0-0.7); EOS % 3.5 % (0.0-4.0); HEMOGLOBIN 15.3 g/dL (12.0-18.0); LYMPH % 29.8 % (20.0-40.0); MEAN CELL VOLUME 79.9 fL (80.0-94.0); MEAN CORPUSCULAR HEMOGLOBIN 27.5 pg (27.0-31.0); MEAN CORPUSCULAR HGB CONC 34.4 g/dL (33.0-37.0); MEAN PLATELET VOLUME 8.6 fL (7.2-11.7); MONO % 7.8 % (0.0-10.0); NEUT # 7.7 K/uL (1.8-7.0); NEUT % 58.2 % (50.0-75.0); RBC 5.57 Mil/uL (4.40-5.90); RED CELL DISTRIBUTION WIDTH 13.9 % (11.5-14.5); WHITE BLOOD COUNT 13.3 K/uL (4.8-10.8)
[2016-08-12] MEDS ORDERED: Propofol 10 mg/ml Inj (20 ML) ONE (11:12)
[2016-08-12 11:18] LABS: INR 1.1; PROTHROMBIN TIME 12.3 SECONDS (9.7-12.2)
[2016-08-12 11:26] LABS: ALBUMIN 3.8 g/dL (3.5-5.0)
[2016-08-12 11:29] LABS: AST/SGOT 35 U/L (17-59); BLOOD UREA NITROGEN 14 mg/dL (9-20); GFR AFRICAN-AMERICAN > 60; GFR NON-AFRICAN AMERICAN > 60
[2016-08-12 11:30] LABS: ALT/SGPT 53 U/L (21-72)
--- NOTE | 2016-08-12 11:57 | PCM.SURG1 ---
Surgeon's Initial Post Op Note - Surgeon's Notes Surgeon: Pradeep Miller MD Hat Forming Machine Operator: Violet Cadena, PGY-1; Toby Perez OMS-III Type of Anesthesia: General LMA Pre-Operative Diagnosis: Abcess of Posterior Neck Operative Findings: Abcess of Posterior Neck Post-Operative Diagnosis: Abcess of Posterior Neck Operation Performed: Incesion and Drainage of Abcess of Posterior Neck Specimen/Specimens Removed: None Estimated Blood Loss: EBL {In ML}: 10 Blood Products Given: N/A Drains Used: No Drains Post-Op Condition: Good Date of Surgery/Procedure: 08/12/16 Time of Surgery/Procedure: 11:30
[2016-08-12] MEDS ORDERED: HYDROmorphone 0.5 mg/0.5 ml ISec IVP PRN (11:59)
[2016-08-12] MEDS ORDERED: Lactated Ringer's 1,000 ML IV SCH (12:00)
--- NOTE | 2016-08-12 12:35 | CP.PCM.PCO ---
Physician Communication Note - Physician Communication Note Physician Communication Note: Per Dr. Miller, pt can be d/c'd home tomorrow from a surgical standpoint
[2016-08-12] MEDS ORDERED: Oxycodone/Acetaminophen 5/325 mg Tab PO PRN (12:45)
--- NOTE | 2016-08-12 14:36 | CP.PCM.PN ---
Subjective - Date & Time of Evaluation Date of Evaluation: 08/12/16 Time of Evaluation: 09:40 - Subjective Subjective: Pt seen and evaluated s/p Incision and Drainage of Abcess of Posterior Neck Objective - Vital Signs/Intake and Output Vital Signs (last 24 hours): Temp Pulse Resp BP Pulse Ox 97.8 F 77 17 161/100 H 100 08/12/16 12:45 08/12/16 12:45 08/12/16 12:45 08/12/16 12:45 08/12/16 12:45 Intake and Output: 08/12/16 08/12/16 06:59 18:59 Intake Total 600 100 Balance 600 100 - Medications Medications: Current Medications Acetaminophen (Tylenol 325mg Tab) 650 mg PO Q4 PRN PRN Reason: Fever >101.0F Last Admin: 08/10/16 17:57 Dose: 650 mg Acetaminophen (Tylenol 325mg Tab) 650 mg PO Q6 PRN PRN Reason: Pain, moderate (4-7) Docusate Sodium (Colace) 100 mg PO BID PRN PRN Reason: Constipation Enoxaparin Sodium (Lovenox) 40 mg SC DAILY [facility] Last Admin: 08/11/16 11:04 Dose: Not Given Famotidine (Pepcid) 20 mg PO DAILY [facility] Last Admin: 08/12/16 10:01 Dose: 20 mg Lactated Ringer's (Lactated Ringer's) 1,000 mls @ 100 mls/hr IV .Q10H [facility] Vancomycin/Sodium Chloride (Vancocin) 1 gm in 200 mls @ 166.7 mls/hr IVPB Q12H [facility] Ibuprofen (Motrin Tab) 600 mg PO TID PRN PRN Reason: Pain, Mild (1-3) Last Admin: 08/08/16 22:46 Dose: 600 mg Oxycodone/Acetaminophen (Percocet 5/325 Mg Tab) 1 tab PO Q4H PRN PRN Reason: Pain, moderate (4-7) Stop: 08/15/16 12:46 Potassium Chloride (K-Dur 20 Meq Er Tab) 20 meq PO DAILY [facility] Last Admin: 08/12/16 10:01 Dose: 20 meq - Labs Labs: 08/12/16 11:02 08/12/16 11:02 PT 12.3 SECONDS (9.7-12.2) H 08/12/16 11:02 INR 1.1 08/12/16 11:02 APTT 33 SECONDS (21-34) 08/12/16 11:02 Assessment and Plan (1) Abscess of neck Status: Acute
[2016-08-12 16:02] VITALS: RESP 20
[2016-08-12] MEDS: Vancomycin 1 gm/NS 200 ml 1 GM/200 ML BAG IVPB SCH (18:30)
[2016-08-13] MEDS: Vancomycin 1 gm/NS 200 ml 1 GM/200 ML BAG IVPB SCH (05:48)
[2016-08-13 08:09] VITALS: BP 149/98; PULSE 73; TEMP 98; O2SAT 97
--- NOTE | 2016-08-13 09:05 | CP.PCM.PN ---
Subjective - Date & Time of Evaluation Date of Evaluation: 08/13/16 Time of Evaluation: 07:00 - Subjective Subjective: General sx progress note for Dr. Haven Cadena, PGY-1 Pt S & E at bedside. Pt w/o complaints overnight. Denies N/V/F/C, tolerating diet. Objective - Vital Signs/Intake and Output Vital Signs (last 24 hours): Temp Pulse Resp BP Pulse Ox 98.0 F 73 20 149/98 H 97 08/13/16 07:08 08/13/16 07:08 08/13/16 07:08 08/13/16 07:08 08/13/16 07:08 Intake and Output: 08/13/16 08/13/16 06:59 18:59 Intake Total 700 Balance 700 - Medications Medications: Current Medications Acetaminophen (Tylenol 325mg Tab) 650 mg PO Q4 PRN PRN Reason: Fever >101.0F Last Admin: 08/10/16 17:57 Dose: 650 mg Acetaminophen (Tylenol 325mg Tab) 650 mg PO Q6 PRN PRN Reason: Pain, moderate (4-7) Docusate Sodium (Colace) 100 mg PO BID PRN PRN Reason: Constipation Enoxaparin Sodium (Lovenox) 40 mg SC DAILY [facility] Last Admin: 08/11/16 11:04 Dose: Not Given Famotidine (Pepcid) 20 mg PO DAILY [facility] Last Admin: 08/12/16 10:01 Dose: 20 mg Lactated Ringer's (Lactated Ringer's) 1,000 mls @ 100 mls/hr IV .Q10H [facility] Last Admin: 08/12/16 22:53 Dose: Not Given Vancomycin/Sodium Chloride (Vancocin) 1 gm in 200 mls @ 166.7 mls/hr IVPB Q12H [facility] Last Admin: 08/13/16 05:48 Dose: 166.7 mls/hr Ibuprofen (Motrin Tab) 600 mg PO TID PRN PRN Reason: Pain, Mild (1-3) Last Admin: 08/08/16 22:46 Dose: 600 mg Oxycodone/Acetaminophen (Percocet 5/325 Mg Tab) 1 tab PO Q4H PRN PRN Reason: Pain, moderate (4-7) Stop: 08/15/16 12:46 Potassium Chloride (K-Dur 20 Meq Er Tab) 20 meq PO DAILY [facility] Last Admin: 08/12/16 10:01 Dose: 20 meq - Labs Labs: 08/12/16 11:02 08/12/16 11:02 PT 12.3 SECONDS (9.7-12.2) H 08/12/16 11:02 INR 1.1 08/12/16 11:02 APTT 33 SECONDS (21-34) 08/12/16 11:02 - Constitutional Appears: Non-toxic, No Acute Distress - Eye Exam Eye Exam: EOMI, Normal appearance - Neck Exam Neck Exam: Full ROM. absent: Normal Inspection, Tenderness Additional comments: Posterior neck surgical site with packing in place, dressing with serosanginous strike through. Surigical site non tender, no expressible drainage, indurated area approximately 4 x 6 cm large, no fluctuance. - Respiratory Exam Respiratory Exam: Clear to Ausculation Bilateral, NORMAL BREATHING PATTERN. absent: Rales, Rhonchi, Wheezes - Cardiovascular Exam Cardiovascular Exam: REGULAR RHYTHM, +S1, +S2 - GI/Abdominal Exam GI & Abdominal Exam: Soft, Normal Bowel Sounds. absent: Tenderness - Extremities Exam Extremities Exam: absent: Pedal Edema - Neurological Exam Neurological Exam: Alert, Awake, Oriented x3 - Psychiatric Exam Psychiatric exam: Normal Affect, Normal Mood - Skin Skin Exam: Dry, Normal Color, Warm. absent: Intact (see neck exam for ) Assessment and Plan - Assessment and Plan (Free Text) Assessment: 51M POD #1 s/p I & D of posterior neck abscess, doing well overnight Plan: -outer dressing changed today -pt cleared for d/c home today from surgical standpoint -pt to [facility] w/Dr. Miller on Tuesday for packing change/wound eval -Please re-consult as needed DW attending Tammi, PGY-1
[2016-08-13] MEDS: Potassium Chloride 20 mEq ER Tab PO SCH (12:39)
--- NOTE | 2016-08-13 12:52 | CP.PCM.PN ---
Subjective - Date & Time of Evaluation Date of Evaluation: 08/13/16 Time of Evaluation: 10:30 - Subjective Subjective: Pt seen and examined today , denies any head ache, N/V/D, fever ,chills s/p I&d of Post head abscess POD#1 Objective - Vital Signs/Intake and Output Vital Signs (last 24 hours): Temp Pulse Resp BP Pulse Ox 98.0 F 73 20 149/98 H 97 08/13/16 07:08 08/13/16 07:08 08/13/16 07:08 08/13/16 07:08 08/13/16 07:08 Intake and Output: 08/13/16 08/13/16 06:59 18:59 Intake Total 700 Balance 700 - Medications Medications: Current Medications Acetaminophen (Tylenol 325mg Tab) 650 mg PO Q4 PRN PRN Reason: Fever >101.0F Last Admin: 08/10/16 17:57 Dose: 650 mg Acetaminophen (Tylenol 325mg Tab) 650 mg PO Q6 PRN PRN Reason: Pain, moderate (4-7) Clindamycin HCl (Cleocin) 300 mg PO Q6 [facility] Docusate Sodium (Colace) 100 mg PO BID PRN PRN Reason: Constipation Enoxaparin Sodium (Lovenox) 40 mg SC DAILY [facility] Last Admin: 08/11/16 11:04 Dose: Not Given Famotidine (Pepcid) 20 mg PO DAILY [facility] Last Admin: 08/12/16 10:01 Dose: 20 mg Lactated Ringer's (Lactated Ringer's) 1,000 mls @ 100 mls/hr IV .Q10H [facility] Last Admin: 08/12/16 22:53 Dose: Not Given Vancomycin/Sodium Chloride (Vancocin) 1 gm in 200 mls @ 166.7 mls/hr IVPB Q12H [facility] Last Admin: 08/13/16 05:48 Dose: 166.7 mls/hr Ibuprofen (Motrin Tab) 600 mg PO TID PRN PRN Reason: Pain, Mild (1-3) Last Admin: 08/08/16 22:46 Dose: 600 mg Oxycodone/Acetaminophen (Percocet 5/325 Mg Tab) 1 tab PO Q4H PRN PRN Reason: Pain, moderate (4-7) Stop: 08/15/16 12:46 Potassium Chloride (K-Dur 20 Meq Er Tab) 20 meq PO DAILY [facility] Last Admin: 08/13/16 12:39 Dose: Not Given - Labs Labs: 08/12/16 11:02 08/12/16 11:02 PT 12.3 SECONDS (9.7-12.2) H 08/12/16 11:02 INR 1.1 08/12/16 11:02 APTT 33 SECONDS (21-34) 08/12/16 11:02 Assessment and Plan - Assessment and Plan (Free Text) Assessment: A/P 51 YR old male admitted for post. head abcess s/p I & D of posterior neck abscess,POD#1 Bp - slightly elevated. Pt refused to take any medication . seen by surgical team today and outer dressing changed today and cleared for d/ c home today from surgical standpoint and FU w/Dr. Miller on Tuesday for packing change/wound eval d/W Dr. merino, stable for discharge home today an df/u with Dr. Merino office on tue. and continue clindamycin for x10 more day s discharge instructions discussed with bubba , who understands an dagrees with plan
--- NOTE | 2016-08-14 00:35 | CP.PCM.DIS ---
Provider - Provider Date of Admission: 08/08/16 13:38 Attending physician: Keshawn Merino MD Time Spent in preparation of Discharge (in minutes): 45 Diagnosis - Discharge Diagnosis (1) Abscess of neck Status: Acute Hospital Course - Lab Results Lab Results: Most Recent Lab Values WBC 13.3 K/uL (4.8-10.8) H 08/12/16 11:02 RBC 5.57 Mil/uL (4.40-5.90) 08/12/16 11:02 Hgb 15.3 g/dL (12.0-18.0) 08/12/16 11:02 Hct 44.5 % (35.0-51.0) 08/12/16 11:02 MCV 79.9 fL (80.0-94.0) L 08/12/16 11:02 MCH 27.5 pg (27.0-31.0) 08/12/16 11:02 MCHC 34.4 g/dL (33.0-37.0) 08/12/16 11:02 RDW 13.9 % (11.5-14.5) 08/12/16 11:02 Plt Count 292 K/uL (130-400) 08/12/16 11:02 MPV 8.6 fL (7.2-11.7) 08/12/16 11:02 Neut % (Auto) 58.2 % (50.0-75.0) 08/12/16 11:02 Lymph % (Auto) 29.8 % (20.0-40.0) 08/12/16 11:02 Iron % (Auto) 7.8 % (0.0-10.0) 08/12/16 11:02 Eos % (Auto) 3.5 % (0.0-4.0) 08/12/16 11:02 Baso % (Auto) 0.7 % (0.0-2.0) 08/12/16 11:02 Neut # 7.7 K/uL (1.8-7.0) H 08/12/16 11:02 Lymph # 4.0 K/uL (1.0-4.3) 08/12/16 11:02 Iron # 1.0 K/uL (0.0-0.8) H 08/12/16 11:02 Eos # 0.5 K/uL (0.0-0.7) 08/12/16 11:02 Baso # 0.1 K/uL (0.0-0.2) 08/12/16 11:02 PT 12.3 SECONDS (9.7-12.2) H 08/12/16 11:02 INR 1.1 08/12/16 11:02 APTT 33 SECONDS (21-34) 08/12/16 11:02 Sodium 137 mmol/L (132-148) 08/12/16 11:02 Potassium 4.0 mmol/L (3.6-5.2) 08/12/16 11:02 Chloride 98 mmol/L (98-107) 08/12/16 11:02 Carbon Dioxide 29 mmol/L (22-30) 08/12/16 11:02 Anion Gap 14 (10-20) 08/12/16 11:02 BUN 14 mg/dL (9-20) 08/12/16 11:02 Creatinine 1.2 MG/DL (0.8-1.5) 08/12/16 11:02 Est GFR ( Amer) > 60 08/12/16 11:02 Est GFR (Non-Af Amer) > 60 08/12/16 11:02 Random Glucose 89 mg/dL (75-110) 08/12/16 11:02 Calcium 9.0 mg/dl (8.6-10.4) 08/12/16 11:02 Total Bilirubin 0.6 mg/dL (0.2-1.3) 08/12/16 11:02 AST 35 U/L (17-59) 08/12/16 11:02 ALT 53 U/L (21-72) 08/12/16 11:02 Alkaline Phosphatase 75 U/L (38-126) 08/12/16 11:02 Total Protein 7.8 g/dL (6.3-8.3) 08/12/16 11:02 Albumin 3.8 g/dL (3.5-5.0) 08/12/16 11:02 Globulin 4.0 gm/dL (2.2-3.9) H 08/12/16 11:02 Albumin/Globulin Ratio 1.0 (1.0-2.1) 08/12/16 11:02 Vancomycin Trough 12.3 ug/mL (5.0-10.0) H 08/11/16 16:42 - Hospital Course Hospital Course: pt seen and examined, is stable for discharge to home Discharge Exam - Head Exam Head Exam: ATRAUMATIC, NORMAL INSPECTION, NORMOCEPHALIC - Eye Exam Eye Exam: EOMI, Normal appearance, PERRL Pupil Exam: NORMAL ACCOMODATION, PERRL - ENT Exam ENT Exam: Mucous Membranes Moist - Respiratory Exam Respiratory Exam: Clear to PA & Lateral, NORMAL BREATHING PATTERN - Cardiovascular Exam Cardiovascular Exam: REGULAR RHYTHM, +S1, +S2 - GI/Abdominal Exam GI & Abdominal Exam: Normal Bowel Sounds Discharge Plan - Discharge Medications Prescriptions: Clindamycin [Cleocin] 300 mg PO Q6 #40 cap - Follow Up Plan Condition: GOOD Disposition: HOME/ ROUTINE Instructions: Pain Management After Surgery (DC), Pain Management After Surgery (GEN), Surgical Site Infections (DC), Surgical Site Infections (GEN), Abscess (GEN), Incision and Drainage (DC) Additional Instructions: Please follow up with Dr. Miller in his office on 08/17/16 for packing removal and wound evaluation. Please take all prescriptions as written. If you have a recurrence of fevers, chills, or if you have excessive bleeding from the surgical site, please return to the hospital. F/u With Dr. Merino office on Tue. continue antibiotics as ordered Do not change dressing until seen by Dr. Omalley . can change outer dressing if wet Referrals: Pradeep Miller MD [Staff Provider] - Keshawn Merino MD [Staff Provider] -
--- NOTE | 2016-08-16 15:40 | CARD ---
APPROVED REPORT EKG Measurement Heart [id number] <Conclusion> Normal sinus rhythm possible old septal infarct borderlinel ECG
== END 2016-08-13 16:32 | disposition home or self-care (01) | DRG 581 ==
LOC: C.ER 12:50 → C.3T 13:38 → OBSVTOIN 08-08 13:38 → C.5T 08-10 19:24
PROVIDERS: ADMIT Internal Medicine; ATTEND Internal Medicine
PROC: 0J950ZZ Drainage of Left Neck Subcutaneous Tissue and Fascia, Open Approach (ICD-10-PCS; principal; 2016-08-08)
DX: L02.11 Cutaneous abscess of neck (principal); I10 Essential (primary) hypertension; D57.3 Sickle-cell trait; B95.62 Methicillin resistant Staphylococcus aureus infection as the cause of diseases classified elsewhere